=== PATIENT | female | born 1960 | race Caucasian/White ===

== ENCOUNTER 2016-09-15 07:11 | Inpatient (IN) | payer OTHER ==
--- NOTE | 2016-08-29 12:45 | PAT Medication Instructions ---
Service Date Aug 29, 2016. Current Home Medication List Albuterol Hfa (Ventolin Hfa), 2-4 PUFFS INH Q6H PRN for PRN Cholecalciferol (Vitamin D3), 5,000 UNITS PO QAM Citalopram (Citalopram Hydrobromide), 1 TAB PO QAM Gabapentin (Neurontin), 100 MG PO TID Ibuprofen (Motrin), 800 MG PO Q8H PRN for N Losartan Potassium (Cozaar), 50 MG PO QAM Meloxicam (Mobic), 7.5 MG PO QAM Metformin Hcl (Glucophage Ext Rel), 1,000 MG PO BID Multiple Vitamins W/ Minerals (Hair Skin and Nails Formu), 1 TAB PO QAM Simvastatin (Zocor), 5 MG PO HS [Humalog], SC PUMP [Hydroxyzine], 10 MG PO TID Medication Instructions For Your Scheduled Surgery - Check with surgeon for instructions: Ibuprofen (Motrin), 800 MG PO Q8H PRN for N Meloxicam (Mobic), 7.5 MG PO QAM - Hold the following medications 48 hours prior to surgery: Metformin Hcl (Glucophage Ext Rel), 1,000 MG PO BID - Hold the following medications the morning of surgery: Multiple Vitamins W/ Minerals (Hair Skin and Nails Formu), 1 TAB PO QAM Losartan Potassium (Cozaar), 50 MG PO QAM Cholecalciferol (Vitamin D3), 5,000 UNITS PO QAM - Take the following medications the morning of surgery with a sip of water: [Hydroxyzine], 10 MG PO TID Gabapentin (Neurontin), 100 MG PO TID Citalopram (Citalopram Hydrobromide), 1 TAB PO QAM Albuterol Hfa (Ventolin Hfa), 2-4 PUFFS INH Q6H PRN for PRN (bring with you to hospital morning of surgery) - Take the following medications as scheduled the night before surgery: [Hydroxyzine], 10 MG PO TID Simvastatin (Zocor), 5 MG PO HS Gabapentin (Neurontin), 100 MG PO TID Albuterol Hfa (Ventolin Hfa), 2-4 PUFFS INH Q6H PRN for PRN - For Insulin Dependent Diabetic patients: Test blood sugar A.M. of surgery. - Continue basal setting; no bolusing AM of surgery -- [Humalog], SC PUMP If you have any questions please call us at [phone] or [phone] or [phone]
[2016-08-29 13:53] LABS: BASO % 0.4 %; BASO ABS # 0.06 K/uL (0-0.2); COMPLETE YES; EOS % 1.3 %; HEMATOCRIT 39.6 % (37-47); IG% 0.2 %; LYMPH % 27.9 %; LYMPH ABS # 4.15 K/uL (1.2-3.4); MEAN CELL VOLUME 88.4 fL (80-100); MEAN CORPUSCULAR HEMOGLOBIN 28.8 pg (25-34); MEAN CORPUSCULAR HGB CONC 32.6 g/dl (32-36); MEAN PLATELET VOLUME 9.9 fL (7.4-10.4); MONO % 4.4 %; NEUT % 65.8 %; PLATELET COUNT 361 K/uL (130-400); RED BLOOD COUNT 4.48 M/uL (4.2-5.4); WHITE BLOOD COUNT 14.86 K/uL (4.8-10.8)
[2016-08-29 13:54] LABS: URINE APPEARANCE CLEAR (CLEAR); URINE BILIRUBIN NEG (NEG); URINE COLOR YELLOW; URINE NITRITE NEG (NEG); URINE PH 5.5 (4.5-7.5); URINE SPECIFIC GRAVITY 1.014 (1.000-1.030); UROBILINOGEN NEG (NEG)
--- NOTE | 2016-08-29 13:54 | DIAGNOSTIC IMAGING REPORT ---
CHEST 2 VIEWS ROUTINE CLINICAL HISTORY: Preoperative evaluation. COMPARISON STUDY: No previous studies for comparison. FINDINGS: Lung volumes are normal. There are cholecystectomy clips. No pneumothorax or pleural effusion is present. No consolidation is identified. There is no evidence of pulmonary edema. There is mild reticulonodular interstitial thickening within the lungs. Cardiac size is normal. Mediastinal contours are normal. Ill-defined hazy opacity projects over the lateral right lower lung. IMPRESSION: 1. No acute cardiopulmonary findings. 2. Mild reticulonodular interstitial thickening. This is nonspecific but likely chronic. 3. Ill-defined hazy right lower lung opacity. This likely reflects overlying soft tissues however a chest CT is recommended to exclude a parenchymal or pleural abnormality. Electronically signed by: Eliot Nolen M.D. 08/29/2016 1:52 PM Dictated Date/Time: 08/29/2016 1:39 PM
[2016-08-29 13:56] LABS: MANUAL MICROSCOPIC REQUIRED? NO; REVIEW REQ? NO
[2016-08-29 15:05] LABS: BUN/CREATININE RATIO 20.5 (10-20); CALCIUM 8.9 mg/dl (8.5-10.1); CREATININE 0.74 mg/dl (0.60-1.20); POTASSIUM 4.1 mmol/L (3.5-5.1)
--- NOTE | 2016-09-12 17:02 | HISTORY & PHYSICAL EXAMINATION ---
DATE OF ADMISSION: 09/15/2016 CHIEF COMPLAINT: Neck and right arm pain. HISTORY OF PRESENT ILLNESS: This patient is a 55-year-old female with a longstanding history of neck pain that radiates into the interscapular area with numbness radiating down the right arm with known spinal stenosis. She has an MRI that shows acquired stenosis superimposed upon congenital stenosis, is multifactorial, results in spinal cord compression without myelomalacia on her MRI. She has disease greatest at C4-C5, C5-C6 and C6-C7 with flattening of the cord, variable degrees of foraminal narrowing as well. Her symptoms have been chronic and failed to respond to conservative treatment. She denies tin incontinence. She denies tin weakness. 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 PAST MEDICAL HISTORY: Arthritis, asthma, diabetes, hypertension, high cholesterol. PAST SURGICAL HISTORY: Cholecystectomy, facial surgery, carpal tunnel release, hysterectomy, jaw surgery and tonsillectomy. SOCIAL HISTORY: The patient is , occasionally drinks alcohol and is a smoker. FAMILY HISTORY: Diabetes and hypertension as noted. MEDICATIONS: Metformin, citalopram, losartan, hydroxyzine, simvastatin, gabapentin. ALLERGIES: PENICILLIN AND NOVOCAIN. REVIEW OF SYSTEMS: Negative for chills, fever, night sweats, chest pain, heart murmur, dyspnea on exertion, incontinence, abdominal pain or depression. PHYSICAL EXAMINATION: The patient stands 5 feet tall, is 160 pounds. She stands and ambulates with a normal gait without tin ataxia. She has normal affect. Answers questions appropriately. Neck range of motion is supple. Fair range of motion. She has no tenderness to palpation in the cervical spine. She has no thyromegaly. No lymphadenopathy of the neck. Auscultation of the heart reveals a regular rate and rhythm. Lungs are clear to auscultation bilaterally with symmetric chest excursion. Upper extremity evaluation reveals palpable radial pulses. Full range of motion. Neurologic exam reveals intact sensation to light touch in all dermatomes in the upper extremities, 5/5 strength in all motor groups in both upper extremities, symmetric 2+ DTRs and a negative Neeta's. ASSESSMENT AND PLAN: The patient has cervical stenosis, is multifactorial with neck and arm pain and paresthesias. She desires surgery. She agreed to C3-C6 laminectomy and fusion. Risk reviewed. She would like to proceed. [facility]
[~2016-09-15] VITALS: Ht 154.9 cm; Wt 71.8 kg
[2016-09-15] VITALS (10 sets, daily range): BP systolic 130–167; BP diastolic 75–100; PULSE 85–107; TEMP 36.5–36.8; O2SAT 95–100
[~2016-09-15 07:11] MED LIST: CHOL1000 PO; CITA40TA4 PO; CLINDAMYCIN 600 MG/54 ML D5W IV SCH; CeleBREX 200 MG CAP PO SCH; GABA-112 PO; HUMALOG SC; HYDROXYZINE PO; IBUP-1428 PO; LOSA50TA6 PO; MELO7.5T5 PO; METF1TAB53 PO; MULT-1018 PO; PREGABALIN 75 MG CAP PO SCH; PROPOFOL IV EMULSION 10 MG/ML 100 ML VIAL IV ONE; SIMV5TAB2 PO; VNTHFA/IN INH
[2016-09-15] MEDS ORDERED: EpHEDrine SULFATE INJ 50 MG/ML AMP IV PRN (08:00)
[2016-09-15] MEDS ORDERED: ATROPINE SULFATE 0.1 MG/ML 5ML SYR IV PRN (08:00)
[2016-09-15] MEDS ORDERED: FENTANYL CITRATE INJ 50 MCG/1 ML 2 ML VIAL IV PRN (08:00)
[2016-09-15] MEDS ORDERED: ONDANSETRON INJ 2 MG/ML 2 ML VIAL IV PRN ×2 (08:00→12:45)
[2016-09-15] MEDS ORDERED: MIDAZOLAM HCL 1 MG/ML 2ML VIAL ONE (09:55)
[2016-09-15] MEDS ORDERED: FENTANYL CITRATE INJ 50 MCG/1 ML 2 ML VIAL ONE ×3 (09:55→13:08)
--- NOTE | 2016-09-15 10:11 | History & Physical Bridge Note ---
H&P Re-Evaluation Bridge Note: I have examined the patient, reviewed the History & Physical and in the interval since the performance of the History & Physical I have noted the following changes of clinical significance: No changes noted
[2016-09-15] MEDS ORDERED: REMIFENTANIL 1 MG VIAL ONE ×2 (10:22→11:41)
[2016-09-15] MEDS ORDERED: THROMBIN 5000 UNITS KIT ONE (10:24)
[2016-09-15] MEDS ORDERED: BACITRACIN 50000 UNIT VIAL ONE (10:25)
[2016-09-15] MEDS ORDERED: BUPIVACAINE/EPINEPHRINE 0.25% 1:200,000 30 ML VIAL ONE (10:47)
[2016-09-15] MEDS ORDERED: THROMBIN FOR SOLN 20000 UNIT KIT ONE (10:47)
[2016-09-15] MEDS ORDERED: HYDROmorphone INJ 2 MG/ML SYR/VIAL ONE ×3 (11:27→13:19)
[2016-09-15] MEDS ORDERED: PHENYLEPHRINE 100MCG/ML 5ML SYR ONE (11:33)
[2016-09-15] MEDS ORDERED: EpHEDrine SULFATE 50MG/5ML SYR ONE (11:33)
[2016-09-15] MEDS ORDERED: SUCCINYLCHOLINE CHLORIDE 20 MG/ML 10 ML VIAL IV ONE (11:33)
[2016-09-15] MEDS ORDERED: PROPOFOL IV EMULSION 10 MG/ML 20 ML VIAL IV ONE (11:33)
[2016-09-15] MEDS ORDERED: LIDOCAINE HCL 2% 2 ML VIAL (20MG/ML) ONE (11:33)
[2016-09-15] MEDS ORDERED: DEXAMETHASONE SOD INJ 4 MG/ML VIAL ONE (11:33)
[2016-09-15] MEDS ORDERED: FLOSEAL HEMOSTATIC MATRIX 5ML TOP ONE (12:21)
[2016-09-15] MEDS ORDERED: ONDANSETRON INJ 2 MG/ML 2 ML VIAL ONE ×2 (12:31)
--- NOTE | 2016-09-15 12:36 | [facility] Post Operative Brief Note ---
Immediate Operative Summary Operative Date Sep 15, 2016. Pre-Operative Diagnosis cervical stenosis, multifactorial with neck and arm pain and paresthesias Post-Operative Diagnosis same Procedure(s) Performed C3-C6 Posterior Laminectomy and Fusion with instrumentation Surgeon Dr. Rush Campos Shale Processing Technician Surgeon(s) Philippe Ponce PA-C Estimated Blood Loss 125 ML Findings dict Specimens none per surgeon
[2016-09-15] MEDS ORDERED: LORAZEPAM INJ 1 MG in SYRINGE 0 ML IV PRN (12:45)
[2016-09-15] MEDS ORDERED: LORAZEPAM 1 MG TAB PO PRN (12:45)
[2016-09-15] MEDS ORDERED: ALBUTEROL HFA 8 GM INHALER INH PRN (12:45)
[2016-09-15] MEDS ORDERED: METOPROLOL TARTRATE 1 MG/ML VIAL ONE (12:49)
--- NOTE | 2016-09-15 12:54 | DIAGNOSTIC IMAGING REPORT ---
Cervical SPINE, INTRAOPERATIVE FLUOROSCOPY HISTORY: Posterior fusion from C3 through C6. FLUOROSCOPY TIME: 9 seconds. FINDINGS: Intraoperative fluoroscopy was provided for the cervical spine. 2 fluoroscopic spot images were obtained. Posterior decompression and fusion from C3 through C6 with pedicle screws and rods. The hardware appears intact. A surgical drain is in place. Skin trey are present. IMPRESSION: Fluoroscopy provided for a C3-C6 posterior decompression and fusion. Electronically signed by: Massimo Kan M.D. 09/15/2016 12:52 PM Dictated Date/Time: 09/15/2016 12:52 PM
[2016-09-15] MEDS ORDERED: NURSING VERBAL MED ORDER ONE ×2 (13:00→19:15)
[2016-09-15] MEDS ORDERED: ALBUT/IPRATROP 3MG/0.5MG NEB 3 ML VIAL INH SCH (13:00)
[2016-09-15] MEDS: HYDROmorphone INJ 1 MG/ML SYR IV PRN ×4 (13:19→13:34)
--- NOTE | 2016-09-15 13:56 | Anesthesiology Progress Note ---
Anesthesia Post Op Note Date & Time Sep 15, 2016 at 13:56 Vital Signs Pain Intensity: 4 Vital Signs Past 12 Hours Date Time Temp Pulse Resp B/P (MAP) Pulse Ox O2 Delivery O2 Flow Rate FiO2 09/15/16 13:30 36.6 96 14 126/176 96 Nasal Cannula 4 09/15/16 13:20 91 14 170/108 100 Nasal Cannula 4 09/15/16 13:10 90 14 171/92 98 Mask 10 09/15/16 13:00 89 14 155/99 100 Mask 10 09/15/16 12:54 86 16 95 Mask 13.0 09/15/16 12:50 90 14 169/86 96 Mask 10 09/15/16 12:46 36.4 100 14 158/86 96 Mask 10 09/15/16 08:32 36.8 85 18 149/82 99 Room Air Notes Mental Status: alert / awake / arousable, participated in evaluation Pt Amnestic to Procedure: Yes Nausea / Vomiting: adequately controlled Pain: adequately controlled Airway Patency, RR, SpO2: stable & adequate BP & HR: stable & adequate Hydration State: stable & adequate Anesthetic Complications: no major complications apparent BG 136 in PACU - pt insulin pump back on
[2016-09-15] MEDS ORDERED: PHARMACY GLYCEMIC MGMT CONSULT PRN (15:35)
[2016-09-15] MEDS ORDERED: FLUT0.15 NAE (15:39)
[2016-09-15] MEDS ORDERED: ATR10 PO (15:39)
[2016-09-15] MEDS ORDERED: hydrOXYzine HCL 10 MG TAB PO PRN (15:45)
[2016-09-15] MEDS ORDERED: FLUTICASONE PROPIONATE NA SPR 16 GM BTL NAE PRN (15:45)
[2016-09-15] MEDS ORDERED: GLUCOSE 40% GEL 15 GM TUBE PO PRN (16:00)
[2016-09-15] MEDS ORDERED: INSULIN HUMAN LISPRO (humaLOG) 100 UNITS/ML VIAL SC PRN (16:00)
[2016-09-15] MEDS ORDERED: GLUCOSE 10 TABS/TUBE PO PRN (16:00)
[2016-09-15] MEDS ORDERED: DEXTROSE 50% 50 ML SYR IV PRN (16:00)
[2016-09-15] MEDS ORDERED: GLUCAGON FOR INJ 1 MG VIAL SQ PRN (16:00)
--- NOTE | 2016-09-15 16:01 | Pharmacy Progress Note ---
Glycemic Control Intl Consult Date of Service Sep 15, 2016. Scope Glycemic Pharmacist consulted by Vickie Liang on 09/15/16 for glycemic control and to write orders per [facility] inpatient glycemic control protocol Objective Weight (Kilograms): 71.800 Accuchecks BSG (last 24hrs): Test 09/15/16 08:22 09/15/16 11:58 09/15/16 13:01 Bedside Glucose 135 mg/dl (70-90) 150 mg/dl (70-90) 136 mg/dl (70-90) Recent Pertinent Medications Outpatient Anti-diabetic Regimen: * Humalog Pump * Unknown settings; Pt and both unaware and unable to provide any specifics * Nurse tried to interrogate the pump and thought the basal rate may be 0.625 units/hr but still is not sure of this * A1c = unknown The patient is currently receiving: * Humalog Insulin Pump per unknown home settings Risk Factors for Insulin Resistance: * Steroids: Intraop Dexamethasone IV * Infection: Post-op Clindamycin IV * IVF: NS * Recent Surgery: POD #0 * Diet: T1DM? Assessment & Plan ASSESSMENT: * 56 yo F admitted with spinal stenosis, POD #0 * Per note in consult entry from RICARDO- patient is a Type 2 diabetic * Unknown A1c; pt uses Humalog pump + Metformin as an outpatient * Upon questioning over the phone, pt and both unable to offer any insight into home pump settings * Nurse attempted to scroll through pump and thought basal rate may be 0.625 units/hr? * As this is after hours, evening pharmacist can not leave pharmacy and interrogate pump * BSGs are within goal range at this time even though she received intraop dexamethasone IV * Continue home pump at this time and intervene if and when necessary * ADA & AACE recommend a goal blood sugar range 140-180 mg/dl for the majority of critically ill & non-critically ill patients. However, more stringent targets may be selected in individual cases. PLAN FOR INPATIENT GLYCEMIC CONTROL: * Hold outpatient metformin at this time * Continue Humalog Pump per home settings * Attempt to have CDE/glycemic pharmacist tomorrow review home settings * A1c with AM labs * Please note that the plan above was derived based on current level of insulin resistance and hospital stress. These recommendations are appropriate for inpatient admission only. Plan of care upon discharge will need to be reassessed to avoid potential outpatient hypo/hyperglycemia. Thank you.
[2016-09-15] MEDS: SODIUM CHLORIDE 0.9% 1000ML 1,000 ML IV SCH (16:11)
[2016-09-15] MEDS: GABAPENTIN 100 MG CAP PO SCH ×2 (16:12→21:34)
[2016-09-15] MEDS: CLINDAMYCIN IV 600 MG in DEXTROSE 5% 50ML 50 ML IV SCH (18:46)
[2016-09-15] MEDS: TRAMADOL HCL 50 MG TAB PO PRN (18:46)
--- NOTE | 2016-09-15 19:13 | Medical Consult ---
Consultation Date of Consultation: Sep 15, 2016. Attending Physician: Rush Campos M.D. Reason for Consultation: diabetes History of Present Illness Patient seen and examined after undergoing C3-C6 laminectomy and fusion by Dr. Campos today. Patient reports feeling tired but no other complaints. Pain is controlled. Has not eaten yet. Last BM was yesterday. Has Cota catheter in place. No fever, chills, dizziness, numbness, tingling, URI symptoms, cough, SOB , chest pain, nausea, vomiting. No hx of VTE. Past Medical/Surgical History Medical Problems: (1) Arthritis Status: Chronic (2) Asthma Status: Chronic (3) DM type 2 (diabetes mellitus, type 2) Status: Chronic (4) HTN (hypertension) Status: Chronic (5) Hyperlipidemia Status: Chronic Surgical Problems: (1) History of carpal tunnel surgery Status: Chronic (2) History of facial surgery Status: Chronic (3) History of hysterectomy Status: Chronic (4) History of mandibular surgery Status: Chronic (5) S/P cholecystectomy Status: Chronic (6) S/P tonsillectomy Status: Chronic Family History Diabetes mellitus Hypertension Social History Smoking Status: Current Every Day Smoker (1/2 ppd) Alcohol Use: occasionally Marital Status: Housing Status: lives with significant other Allergies Coded Allergies: Acetaminophen (Verified Allergy, Unknown, NAUSEA AND VOMITING, 09/15/16) Oxycodone (Verified Allergy, Unknown, NAUSEA AND VOMITING, 09/15/16) Penicillins (Verified Allergy, Unknown, UNKNOWN, 09/15/16) Procaine (Verified Allergy, Unknown, UNKNOWN REACTION A CHILD, 09/15/16) Propoxyphene (Verified Allergy, Unknown, NAUISEA AND VOMITING, 09/15/16) Unclassified Drugs (Verified Allergy, Unknown, NOVACAINE - UNKNOWN REACTION CHILD, 09/15/16) Home Medications Active Reported Flonase Allergy Relief (Fluticasone Propionate (Nasal)) 50 Mcg/Act Spr 1 [place] DANIEL BID PRN Hydroxyzine HCl 10 Mg Tab 10 Mg PO Q8 PRN Ventolin Hfa (Albuterol) 200 Puffs/21108 Mcg Aers 2 Puffs INH Q4H PRN Motrin (Ibuprofen) 800 Mg Tab 800 Mg PO Q8H PRN Neurontin (Gabapentin) 100 Mg Cap 100 Mg PO TID Vitamin D3 (Cholecalciferol) 1,000 Unit Tab 1,000 Units PO QAM 90 Days Cozaar (Losartan Potassium) 50 Mg Tab 50 Mg PO QAM Citalopram Hydrobromide (Citalopram) 40 Mg Tab 1 Tab PO QAM 90 Days [Humalog] SC PUMP Glucophage Ext Rel (Metformin Hcl) 1,000 Mg Tab 1,000 Mg PO BID Current Inpatient Medications Current Inpatient Medications Medications (Trade) Dose Ordered Sig/Riley Route Start Time Stop Time Status Last Admin Dose Admin Clindamycin Phosphate 54 ml @ 100 mls/hr PREOP IV 09/15/16 06:00 09/15/16 18:00 09/15/16 10:36 100 MLS/HR Celecoxib (CeleBREX CAP) 200 mg PREOP PO 09/15/16 06:00 09/15/16 18:00 09/15/16 08:49 200 MG Pregabalin (Lyrica Cap) 75 mg PREOP PO 09/15/16 06:00 09/15/16 15:59 09/15/16 08:48 75 MG Albuterol (Ventolin Hfa Inhaler) 2-4 PUFFS Q6H PRN INH 09/15/16 12:45 10/15/16 12:44 Citalopram Hydrobromide (celeXA TAB) 40 mg QAM PO 09/16/16 09:00 10/16/16 08:59 Gabapentin (Neurontin Cap) 100 mg TID PO 09/15/16 14:00 10/15/16 13:59 Losartan Potassium (coZAAR TAB) 50 mg QAM PO 09/16/16 09:00 10/16/16 08:59 Simvastatin (Zocor Tab) 5 mg HS PO 09/15/16 21:00 10/15/16 20:59 Ondansetron HCl (Zofran Inj) 4 mg Q6 PRN IV 09/15/16 12:45 10/15/16 12:44 Clindamycin Phosphate 600 mg/ Dextrose 54 ml @ 100 mls/hr Q8H IV 09/15/16 18:00 09/16/16 10:33 Lorazepam (Ativan Tab) 1 mg Q8H PRN PO 09/15/16 12:45 10/15/16 12:44 Lorazepam 1 mg/ Syringe 0.5 ml @ 1 mls/min Q8 PRN IV 09/15/16 12:45 10/15/16 12:44 Sodium Chloride 1,000 ml @ 80 mls/hr [id number] IV 09/15/16 12:36 09/16/16 12:35 Hydromorphone HCl (Dilaudid Inj) 0.5 mg Q3H PRN IV 09/15/16 12:45 09/29/16 12:44 Tramadol HCl (Ultram Tab) 50 mg Q4H PRN PO 09/15/16 12:45 10/15/16 12:44 Miscellaneous Information (Consult Glycemic Management Pharmacy) 1 ea UD PRN N/A 09/15/16 15:35 10/15/16 15:34 Review of Systems Constitutional- no fever; no weight loss Eyes- no acute visual changes ENT- no sinus drainage; no pharyngitis Pulmonary- no cough, no wheezing, no shortness of breath Cardiac- no chest pain, no palpitations, no orthopnea, no dependent edema GI- no nausea, no vomiting, no diarrhea, no melena, no hematochezia - no dysuria, no hematuria Musculoskeletal- no arthralgias, no myalgias Derm- no rashes, no new skin lesions, no changing skin lesions Hematologic- no unusual bruising, no unusual bleeding Lymphatics- no adenopathy Endocrine- no polyuria or polydipsia; no heat or cold intolerance Neuro- no headaches, no focal neurologic symptoms Psych- no anxiety, no depression Physical Exam Date Time Temp Pulse Resp B/P (MAP) Pulse Ox O2 Delivery O2 Flow Rate FiO2 09/15/16 15:17 36.8 97 16 130/85 (100) 99 Nasal Cannula 4.0 09/15/16 15:02 Nasal Cannula 4.0 09/15/16 14:50 36.7 103 16 135/85 (102) 97 Nasal Cannula 4.0 09/15/16 14:10 36.4 94 14 130/62 100 Nasal Cannula 4 09/15/16 14:00 98 14 106/64 98 Nasal Cannula 4 09/15/16 13:50 94 14 146/80 96 Nasal Cannula 4 09/15/16 13:40 92 14 153/90 96 Nasal Cannula 4 09/15/16 13:30 36.6 96 14 126/76 96 Nasal Cannula 4 09/15/16 13:20 91 14 170/108 100 Nasal Cannula 4 09/15/16 13:10 90 14 171/92 98 Mask 10 09/15/16 13:00 89 14 155/99 100 Mask 10 09/15/16 12:54 86 16 95 Mask 13.0 09/15/16 12:50 90 14 169/86 96 Mask 10 09/15/16 12:46 36.4 100 14 158/86 96 Mask 10 09/15/16 08:32 36.8 85 18 149/82 99 Room Air General Appearance: WD/WN, no apparent distress, + pertinent finding (mildly drowsy cooperative 56 year old female) Head: normocephalic, atraumatic Eyes: normal inspection ENT: hearing grossly normal Neck: trachea midline, + pertinent finding (s/p cervical spinal surgery, dressing in place, drain with sanguinous drainage) Respiratory/Chest: lungs clear, normal breath sounds, no respiratory distress, no accessory muscle use Cardiovascular: no murmur, + pertinent finding (HR mildly elevated to 90s, regular) Abdomen/GI: normal bowel sounds, non tender, soft, + pertinent finding (SQ insulin pump) Genitourinary - Female: + pertinent finding (Cota catheter draining clear yellow urine) Extremities/Musculoskelatal: no calf tenderness, no pedal edema Neurologic/Psych: alert, normal mood/affect, oriented x 3 Skin: normal color, warm/dry Laboratory Results Last 24 Hours Test 09/15/16 08:22 09/15/16 11:58 09/15/16 13:01 Bedside Glucose 135 mg/dl 150 mg/dl 136 mg/dl Assessment & Plan S/P C3-C6 LAMINECTOMY AND FUSION POD #[address] Campos Doing well postoperatively Pain control, wound care, and activity per ortho Monitor daily H/H for sign of acute blood loss anemia Continue incentive spirometry MILD TACHYCARDIA HR mildly elevated to 90s-100s after receiving Duoneb treatment in afternoon Elevated HR persisted through 7pm- may be pain related; RN just medicated patient Will increase IVF's to 100/hour DM TYPE 2 Hold metformin On insulin pump- pharmacy consulted for management HYPERTENSION BP is stable Continue losartan ASTHMA Not in acute exacerbation Continue home inhaler DYSLIPIDEMIA Continue statin DEPRESSION Continue citalopram DISPOSITION Per ortho Patient seen in collaboration with Dr. Rodríguez. Please see his addendum. ATTENDING ADDENDUM care coordinated with NORTH Liang please refer to her notes for full details, I agree with her notes patient seen and examined, records reviewed by myself as well on exam, patient seen sitting up in bed, in good spirits, alert pain well controlled denies chest pain, dyspnea, dizziness, nausea no other symptoms VS noted and reviewed orientedx 3 , not in distress, speaks in sentences with no effort nor accessory muscle use normal rate, regular rhythm, no murmurs clear breath sounds bilaterally non distended, soft, nontender no bipedal edema, erythema, warmth no neuro deficits no labs today ASSESSMENT/PLAN> DM hold Metformin resume tomorrow when renal function is stable continue Insulin Pump HTN continue Losartan other diagnoses and plan of care as per NORTH Rodríguez MD
[2016-09-15] MEDS: SIMVASTATIN 5 MG TAB PO SCH (21:33)
[2016-09-15] MEDS ORDERED: INSULIN HUMAN REGULAR IV BOLUS 5 UNIT in SYRINGE 0 ML IV SCH (22:00)
[2016-09-15] MEDS: HYDROmorphone INJ 0.5 MG/0.5 ML SYR IV PRN (23:14)
[2016-09-16] MEDS: SODIUM CHLORIDE 0.9% 1000ML 1,000 ML IV SCH ×2 (00:18→10:07)
[2016-09-16] MEDS: CLINDAMYCIN IV 600 MG in DEXTROSE 5% 50ML 50 ML IV SCH ×2 (01:59→10:07)
[2016-09-16 03:45] VITALS: BP 155/83; PULSE 99; TEMP 36.6; O2SAT 100
[2016-09-16] MEDS: TRAMADOL HCL 50 MG TAB PO PRN (03:47)
[2016-09-16] MEDS: HYDROmorphone INJ 0.5 MG/0.5 ML SYR IV PRN ×3 (05:14→21:34)
[2016-09-16 06:13] LABS: BASO % 0.1 %; BASO ABS # 0.02 K/uL (0-0.2); COMPLETE YES; EOS % 0.1 %; HEMATOCRIT 37.4 % (37-47); IG% 0.2 %; LYMPH % 14.9 %; LYMPH ABS # 2.49 K/uL (1.2-3.4); MEAN CELL VOLUME 88.6 fL (80-100); MEAN CORPUSCULAR HEMOGLOBIN 29.9 pg (25-34); MEAN CORPUSCULAR HGB CONC 33.7 g/dl (32-36); MEAN PLATELET VOLUME 11.4 fL (7.4-10.4); NEUT % 76.7 %; PLATELET COUNT 263 K/uL (130-400); RED BLOOD COUNT 4.22 M/uL (4.2-5.4); WHITE BLOOD COUNT 16.66 K/uL (4.8-10.8)
[2016-09-16 06:44] LABS: BUN/CREATININE RATIO 13.2 (10-20); CALCIUM 9.2 mg/dl (8.5-10.1); CREATININE 0.65 mg/dl (0.60-1.20); POTASSIUM 3.8 mmol/L (3.5-5.1)
[2016-09-16 06:51] LABS: ESTIMATED AVERAGE GLUCOSE 154 mg/dl; HA1C FLAG Normal (Normal)
[2016-09-16 07:38] VITALS: BP 184/99; PULSE 93; TEMP 36.6; O2SAT 100
[2016-09-16] MEDS: LOSARTAN POTASSIUM 50 MG TAB PO SCH (07:42)
[2016-09-16] MEDS: CITALOPRAM 40 MG TAB PO SCH (07:42)
[2016-09-16] MEDS: GABAPENTIN 100 MG CAP PO SCH ×3 (07:43→21:39)
--- NOTE | 2016-09-16 08:35 | Anesthesiology Progress Note ---
Anesthesia Post Op Note Date & Time Sep 16, 2016 at 08:34 Vital Signs Pain Intensity: 10.0 Vital Signs Past 12 Hours Date Time Temp Pulse Resp B/P (MAP) Pulse Ox O2 Delivery O2 Flow Rate FiO2 09/16/16 07:38 36.6 93 17 184/99 (127) 100 Room Air 09/16/16 07:37 Room Air 09/16/16 03:45 36.6 99 14 155/83 (107) 100 Room Air 09/16/16 00:25 Room Air 09/15/16 22:51 36.7 102 14 130/75 (93) 97 Room Air 09/15/16 21:20 103 161/91 (114) 96 Room Air Notes Mental Status: alert / awake / arousable, participated in evaluation Pt Amnestic to Procedure: Yes Nausea / Vomiting: adequately controlled Pain: adequately controlled Airway Patency, RR, SpO2: stable & adequate BP & HR: stable & adequate Hydration State: stable & adequate Anesthetic Complications: no major complications apparent
--- NOTE | 2016-09-16 10:02 | Pharmacy Progress Note ---
Glycemic Control Progress Note Date of Service Sep 16, 2016. Scope Glycemic Pharmacist consulted for glycemic control to write orders per [facility] inpatient glycemic control protocol. Objective Accuchecks BSG (last 24hrs): Test 09/15/16 11:58 09/15/16 13:01 09/15/16 21:44 09/15/16 23:55 Bedside Glucose 150 mg/dl (70-90) 136 mg/dl (70-90) 273 mg/dl (70-90) 198 mg/dl (70-90) Test 09/16/16 03:44 09/16/16 05:40 Bedside Glucose 115 mg/dl (70-90) Random Glucose 99 mg/dl (70-99) HbA1c: Test 09/16/16 05:40 Hemoglobin A1c 7.0 % (4.5-5.6) H Recent Pertinent Medications The patient is currently receiving: * Medtronic insulin pump {Humalog insulin} per outpatient settings * Basal rate = 0.625 units/hr * Goal range 120-120 * SF = 60 * CR = 18 Outpatient Anti-Diabetic Meds Oral Agents SQ Medrtonic insulin pump {Humalog} Assessment & Plan ASSESSMENT: * See progress note from 09/15 for more background info, in short: * Pt receiving her outpatient regimen of Humalog insulin pump per outpatient settings. * Pt with adequate degree of outpatient control per recent A1c of 7%. * Pt with sustained hyperglycemia yesterday to recent surgery, and steroids. * Hyperglycemia now resolved with Q4hrs bolusing from her pump over night and one time IV insulin bolus. Additionally, dxm effects are wearing off which should prevent further hyperglycemia. * BSGs ranging 99 - 336 mg/dl over the past 24hrs * staff educator met with patient this morning. Please refer to their note for more information. * Changes needed to insulin regimen: * AM Fasting BSG = 99 mg/dl. This is in goal range for patient based on inpatient targets and co-morbidities. * Post-prandial BSGs are in range therefore no changes needed to CF/CR based on pump settings * Pt to d/c to home soon PLAN FOR INPATIENT GLYCEMIC CONTROL: No changes needed at this time. Pt to continue utilizing her insulin pump per outpatient settings until discharge. * Please note that the plan above was derived based on current level of insulin resistance and hospital stress. These recommendations are appropriate for inpatient admission only. Plan of care upon discharge will need to be reassessed to avoid potential outpatient hypo/hyperglycemia. Thank you.
[2016-09-16 11:17] VITALS: Ht 154.9 cm; Wt 71.8 kg
--- NOTE | 2016-09-16 12:44 | Progress Note ---
Medicine Progress Note Date & Time of Visit: Sep 16, 2016 at 12:40. Subjective seen resting in bed reports neck pain today no dyspnea, chest pain, dizziness, nausea no other symptoms Objective Last 8 Hrs Date Time Temp Pulse Resp B/P (MAP) Pulse Ox O2 Delivery O2 Flow Rate FiO2 09/16/16 07:38 36.6 93 17 184/99 (127) 100 Room Air 09/16/16 07:37 Room Air Physical Exam: General- oriented x 3, not in distress, speaks in sentences with no effort Eyes- anicteric Neck- supple, no JVD Lungs- clear breath sounds bilaterally, no rales/wheezes Heart- regular rhythm; no murmur, normal rate Abdomen- normal bowel sounds, soft, nontender Extremities- no pretibial edema, no calf tenderness; peripheral pulses intact Neuro- alert, oriented x 3; no gross focal deficits Skin- warm & dry Laboratory Results: Last 24 Hours Test 09/15/16 13:01 09/15/16 21:44 09/15/16 23:55 09/16/16 03:44 Bedside Glucose 136 mg/dl 273 mg/dl 198 mg/dl 115 mg/dl Test 09/16/16 05:40 White Blood Count 16.66 K/uL Red Blood Count 4.22 M/uL Hemoglobin 12.6 g/dL Hematocrit 37.4 % Mean Corpuscular Volume 88.6 fL Mean Corpuscular Hemoglobin 29.9 pg Mean Corpuscular Hemoglobin Concent 33.7 g/dl Platelet Count 263 K/uL Mean Platelet Volume 11.4 fL Neutrophils (%) (Auto) 76.7 % Lymphocytes (%) (Auto) 14.9 % Monocytes (%) (Auto) 8.0 % Eosinophils (%) (Auto) 0.1 % Basophils (%) (Auto) 0.1 % Neutrophils # (Auto) 12.76 K/uL Lymphocytes # (Auto) 2.49 K/uL Monocytes # (Auto) 1.33 K/uL Eosinophils # (Auto) 0.02 K/uL Basophils # (Auto) 0.02 K/uL RDW Standard Deviation 44.8 fL RDW Coefficient of Variation 13.8 % Immature Granulocyte % (Auto) 0.2 % Immature Granulocyte # (Auto) 0.04 K/uL Sodium Level 140 mmol/L Potassium Level 3.8 mmol/L Chloride Level 106 mmol/L Carbon Dioxide Level 24 mmol/L Anion Gap 10.0 mmol/L Blood Urea Nitrogen 9 mg/dl Creatinine 0.65 mg/dl Est Creatinine Clear Calc Drug Dose 86.5 ml/min Estimated GFR () 114.2 Estimated GFR (Non- 98.6 BUN/Creatinine Ratio 13.2 Random Glucose 99 mg/dl Estimated Average Glucose 154 mg/dl Hemoglobin A1c 7.0 % Calcium Level 9.2 mg/dl Hepatitis C Antibody Screen NEG Assessment & Plan S/P C3-C6 LAMINECTOMY AND FUSION POD #[address] Campos hg stable Pain management, DVT prophylaxis per Ortho DM TYPE 2 crea stable resume Metformin On insulin pump- pharmacy consulted HYPERTENSION BP elevated PRN Clonidine ordered Continue losartan d/c IV fluids ASTHMA Not in acute exacerbation Continue home inhaler DYSLIPIDEMIA Continue statin DEPRESSION Continue citalopram Thank you for this consultation. We will follow the patient with you during their hospital stay. You can reach a member of the [facility] Hospitalist Team 17/10 via pager @ [phone]. Current Inpatient Medications: Current Inpatient Medications Medications (Trade) Dose Ordered Sig/Riley Route Start Time Stop Time Status Last Admin Dose Admin Albuterol (Ventolin Hfa Inhaler) 2-4 PUFFS Q6H PRN INH 09/15/16 12:45 10/15/16 12:44 Citalopram Hydrobromide (celeXA TAB) 40 mg QAM PO 09/16/16 09:00 10/16/16 08:59 09/16/16 07:42 40 MG Gabapentin (Neurontin Cap) 100 mg TID PO 09/15/16 14:00 10/15/16 13:59 09/16/16 07:43 100 MG Losartan Potassium (coZAAR TAB) 50 mg QAM PO 09/16/16 09:00 10/16/16 08:59 09/16/16 07:42 50 MG Simvastatin (Zocor Tab) 5 mg HS PO 09/15/16 21:00 10/15/16 20:59 09/15/16 21:33 5 MG Ondansetron HCl (Zofran Inj) 4 mg Q6 PRN IV 09/15/16 12:45 10/15/16 12:44 Lorazepam (Ativan Tab) 1 mg Q8H PRN PO 09/15/16 12:45 10/15/16 12:44 09/16/16 07:41 1 MG Lorazepam 1 mg/ Syringe 0.5 ml @ 1 mls/min Q8 PRN IV 09/15/16 12:45 10/15/16 12:44 Hydromorphone HCl (Dilaudid Inj) 0.5 mg Q3H PRN IV 09/15/16 12:45 09/29/16 12:44 09/16/16 10:08 0.5 MG Tramadol HCl (Ultram Tab) 50 mg Q4H PRN PO 09/15/16 12:45 10/15/16 12:44 09/16/16 03:47 50 MG Miscellaneous Information (Consult Glycemic Management Pharmacy) 1 ea UD PRN N/A 09/15/16 15:35 10/15/16 15:34 Fluticasone Propionate (Flonase Nasal [place]) 1 sprays BID PRN DANIEL 09/15/16 15:45 10/15/16 15:44 Hydroxyzine HCl (Vistaril Tab) 10 mg Q8 PRN PO 09/15/16 15:45 10/15/16 15:44 Insulin Human Lispro (HumaLOG INSULIN PUMP) 1 ea ACHS N/A 09/15/16 17:15 10/15/16 17:14 09/15/16 21:00 1 EA Insulin Human Lispro (humaLOG) SLIDING SCALE PRN PRN SC 09/15/16 16:00 10/15/16 15:59 Glucose (Glucose 40% Gel) UD PRN PO 09/15/16 16:00 10/15/16 15:59 Glucose (Glucose Chew Tab) 1 tabs UD PRN PO 09/15/16 16:00 10/15/16 15:59 Glucagon (Glucagon Inj) 1 mg UD PRN SQ 09/15/16 16:00 10/15/16 15:59 Dextrose (Dextrose 50% 50ML Syringe) 50 ml UD PRN IV 09/15/16 16:00 10/15/16 15:59 Metformin HCl (Glucophage Extended Rel Tab) 1,000 mg BIDM PO 09/16/16 17:45 10/16/16 17:44
[2016-09-16] MEDS ORDERED: CLONIDINE HCL 0.1 MG TAB PO PRN (12:45)
[2016-09-16 13:11] VITALS: BP 167/99; PULSE 99; O2SAT 96
[2016-09-16] MEDS ORDERED: CLONIDINE HCL 0.1 MG TAB PO ONE (13:15)
--- NOTE | 2016-09-16 14:26 | Orthopedic Progress Note ---
Orthopedic Progress Note Date of Service Sep 16, 2016. Subjective Post OP Day: 1 Reports: feeling well, pain controlled w PO medications Objective calves soft nontender, N/V intact, dressing C/D/I, A&O x3, hemovac drainage Date Time Temp Pulse Resp B/P (MAP) Pulse Ox O2 Delivery O2 Flow Rate FiO2 09/16/16 13:11 99 16 167/99 (121) 96 Room Air 09/16/16 07:38 36.6 93 17 184/99 (127) 100 Room Air 09/16/16 07:37 Room Air 09/16/16 03:45 36.6 99 14 155/83 (107) 100 Room Air 09/16/16 00:25 Room Air 09/15/16 22:51 36.7 102 14 130/75 (93) 97 Room Air 09/15/16 21:20 103 161/91 (114) 96 Room Air 09/15/16 19:23 36.6 98 16 167/100 (122) 100 Nasal Cannula 4.0 09/15/16 17:56 36.6 107 17 164/90 (114) 99 Nasal Cannula 4.0 09/15/16 16:48 36.5 106 17 136/84 (101) 98 Room Air 09/15/16 15:50 36.7 98 16 131/86 (101) 98 Nasal Cannula 4.0 09/15/16 15:45 Nasal Cannula 4.0 09/15/16 15:17 36.8 97 16 130/85 (100) 99 Nasal Cannula 4.0 09/15/16 15:02 Nasal Cannula 4.0 09/15/16 14:50 36.7 103 16 135/85 (102) 97 Nasal Cannula 4.0 Laboratory Results 24 Hours: Test 09/16/16 05:40 White Blood Count 16.66 K/uL Red Blood Count 4.22 M/uL Hemoglobin 12.6 g/dL Hematocrit 37.4 % Mean Corpuscular Volume 88.6 fL Mean Corpuscular Hemoglobin 29.9 pg Mean Corpuscular Hemoglobin Concent 33.7 g/dl Platelet Count 263 K/uL Mean Platelet Volume 11.4 fL Neutrophils (%) (Auto) 76.7 % Lymphocytes (%) (Auto) 14.9 % Monocytes (%) (Auto) 8.0 % Eosinophils (%) (Auto) 0.1 % Basophils (%) (Auto) 0.1 % Neutrophils # (Auto) 12.76 K/uL Lymphocytes # (Auto) 2.49 K/uL Monocytes # (Auto) 1.33 K/uL Eosinophils # (Auto) 0.02 K/uL Basophils # (Auto) 0.02 K/uL Assessment & Plan Assessment: neck pain, neuro improved. cont insulin pump,cont drain, d/c monday? appreciate IM input
[2016-09-16 15:27] VITALS: BP 159/90; PULSE 90; TEMP 36.8; O2SAT 97
[2016-09-16] MEDS: METFORMIN HCL 500 MG TABCR PO SCH (18:40)
[2016-09-16] MEDS: KETOROLAC TROMETHAMINE 15 MG/ML VIAL IV PRN (21:34)
--- NOTE | 2016-09-16 22:03 | OPERATIVE REPORT ---
DATE OF OPERATION: 09/15/2016 PREOPERATIVE DIAGNOSES: 1. Cervical stenosis. 2. Cervical radiculopathy and myelopathy. POSTOPERATIVE DIAGNOSES: Same. PROCEDURES: 1. C3, C4, C5 and C6 laminectomies. 2. Segmental lateral mass screw instrumentation -- bilateral C3, C4, C5 and C6 with K2M titanium lateral mass screws. 3. Posterior fusion C3-C6 -- bilateral with Infuse BMP on a collagen sponge, tricalcium phosphate, local bone, and bone putty. SURGEON: Dr. Campos. OSTEOLOGIST: Tony Ponce PA-C. Please note he participated in all portions of the procedure and was critical for performance of procedure, participated in positioning, prepping, draping, retraction and wound closure. ANESTHESIA: General endotracheal anesthesia. COMPLICATIONS: None. ESTIMATED BLOOD LOSS: 100 mL. DESCRIPTION OF PROCEDURE: After identification of patient and operative level, she was brought to the OR where she underwent induction of general anesthesia. She was then positioned prone with Butts tongs and skull pin after placement of spinal cord monitoring. The posterior cervical area was sterilely prepped and draped in usual fashion. Antibiotics were administered. Time-out was performed. Level was confirmed and skin incision was infiltrated with Marcaine with epinephrine. I made skin incision from spinous process of C2-C7, exposed the posterior elements out to the lateral portion of the lateral masses from C3-C6. I identified the level with fluoroscopy and marked the operative levels and then proceeded to predrill and tap holes in lateral masses of C3, C4, C5 and C6 for subsequent lateral mass screw insertion. Screws were placed unicortically. I used a ball tipped probe to confirm this. Screws were placed bilaterally at all levels. I then did a central laminectomy creating a trough on each side of the lamina from C3-C6. This was done bilaterally. I then released the ligaments proximally and distally and removed the lamina from C3-C6 en bloc. This was then cleaned and morcellized for bone graft. After completion of the central decompression, I did foraminotomies as necessary, confirmed nerve roots, spinal cord, decompressed undercut C3 and C7 above and below en bloc laminectomy and then applied FloSeal for hemostasis. I then placed lateral mass screws from C3-C6 bilaterally, applied rods and end caps for final tightening. Prior to inserting the nuno, I did scrub out and extended the neck to restore lordosis, repositioned the head, there were no changes in spinal cord monitoring during this maneuver, I then marked the rods and end caps into place. Applied a crosslink, irrigated with bacitracin solution and decorticated the lateral masses from C3-C6 bilaterally and then packed the lateral gutters with bone graft using Infuse BMP on a collagen sponge, tricalcium phosphate, local bone and bone putty. I then closed in layered fashion over a drain. All sponge and needle counts were correct at the end of the case. I attest to the content of the Intraoperative Record and any orders documented therein. Any exception s are noted below.
[2016-09-16] MEDS: SIMVASTATIN 5 MG TAB PO SCH (22:05)
[2016-09-17] VITALS (8 sets, daily range): BP systolic 135–174; BP diastolic 82–107; PULSE 78–93; TEMP 36.6–37; O2SAT 96–99
[2016-09-17 06:21] LABS: CALCIUM 8.9 mg/dl (8.5-10.1)
[2016-09-17 06:22] LABS: CREATININE 0.69 mg/dl (0.60-1.20); POTASSIUM 3.5 mmol/L (3.5-5.1)
[2016-09-17] MEDS: KETOROLAC TROMETHAMINE 15 MG/ML VIAL IV PRN (08:00)
[2016-09-17] MEDS: LOSARTAN POTASSIUM 50 MG TAB PO SCH (09:53)
[2016-09-17] MEDS: GABAPENTIN 100 MG CAP PO SCH (09:53)
[2016-09-17] MEDS: CITALOPRAM 40 MG TAB PO SCH (09:53)
[2016-09-17] MEDS: METFORMIN HCL 500 MG TABCR PO SCH (09:54)
[2016-09-17] MEDS ORDERED: ULT50X PO (14:10)
--- NOTE | 2016-09-17 14:12 | Discharge Instructions ---
Discharge Instructions Date of Service Sep 17, 2016. Admission Reason for Admission: Spinal Stenosis Discharge Discharge Diagnosis / Problem: same Discharge Goals Goal(s): Decrease discomfort Activity Recommendations Activity Limitations: per Instructions/Follow-up section . Instructions / Follow-Up Instructions / Follow-Up ACTIVITY RECOMMENDATIONS: SELF CARE INSTRUCTIONS AFTER CERVICAL FUSIONS 1. No smoking. Smoking drastically decreases the chance of a solid fusion. 2. No bending, lifting more than 5 pounds, or twisting (roll like a log when turning in bed). 3. You may shower 3 days after surgery. Thoroughly dry wound. Do not soak in the tub. 4. Cervical collar: You may remove the brace only to bath, eat , sleep and if you are sitting. 5. Please walk as much as you can for exercise. Gradually increase the distance that you walk as your endurance increases. SPECIAL CARE INSTRUCTIONS: VERY IMPORTANT TO READ AND REVIEW C. Complications are uncommon, but please contact us if you have any signs or symptoms of: 1. wound infection (fever higher than 102.5 degrees F, redness, separation of wound, drainage, or increasing pain from the incision) 2. blood clots in legs (pain, swelling, redness and warmth in legs) 3. urinary tract infection (fever higher than 102.5 degrees, burning upon urination or increased frequency of urination) 4. nerve problems (inability to walk on your toes or heels, numbness, loss of bowel or bladder control) 5. any other symptoms that concern you. D. Please call the office at if you have any concerns or questions about your operation or recovery. MANAGING PAIN AFTER SPINAL SURGERY 1. Narcotic medication is intended for short-term use and will be provided for surgical pain. Surgical pain usually lasts for a period of 4-6 weeks. Narcotic medication includes Percocet, Vicodin, Darvocet, Tylenol #3 or Lortab. 2. Longer-term pain is more appropriately treated with non-narcotic medication such as Tylenol ES. 3. Muscle spasm is not appropriately treated with narcotics. Muscle relaxers such as Soma, Flexeril or Skelaxin can be used along with Tylenol ES. 4. Remember that we all live with some "aches and pains". This is not unusual or uncommon after an injury or as we get older. 5. We will provide appropriate medication within the normal guidelines of their prescribed use. We will also be very cautious and aware of potential abuse and extended duration of patients' medication needs. 6. Please allow 2-3 days to process refills. Prescriptions will not be mailed but must be picked up at the office. FOLLOW UP VISIT: Keep your scheduled follow-up appointment. Any questions, please call the office at . Current Hospital Diet Patient's current hospital diet: Diabetes Type 1 Diet Discharge Diet Recommended Diet: Diabetes Type 2 Diet Procedures Procedures Performed: C3-C6 Posterior Laminectomy and Fusion with instrumentation Pending Studies Studies pending at discharge: no Laboratory Results Hemoglobin A1c Test 09/16/16 05:40 Range/Units Estimated Average Glucose 154 mg/dl Hemoglobin A1c 7.0 H 4.5-5.6 % Medical Emergencies . Who to Call and When: Medical Emergencies: If at any time you feel your situation is an emergency, please call 911 immediately. . Non-Emergent Contact Non-Emergency issues call your: Surgeon . "Provider Documentation" section prepared by Rush Campos. . VTE Core Measure Inpt VTE Proph given/why not?: SCD's [place] Drug Monitoring Program Search Results: patient reviewed within database, no issues identified
--- NOTE | 2016-09-17 14:15 | Discharge Summary ---
Orthopedic Discharge Summary Admission Date/Reason Sep 15, 2016 at 08:43 Spinal Stenosis. Discharge Date/Disposition Sep 17, 2016 Home Diagnosis Principal Diagnosis: same Procedure(s) Performed C3-6 laminectomy/PSF Medication Reconciliation New Medications: Tramadol HCl (Tramadol HCl) 50 Mg Tab 50 MG PO Q4H PRN for Pain, #90 TAB Continued Medications: Albuterol Hfa (Ventolin Hfa) 200 Puffs/30951 Mcg Aers 2 PUFFS INH Q4H PRN for SOB/Wheezing, #1 INHALER Cholecalciferol (Vitamin D3) 1,000 Unit Tab 1000 UNITS PO QAM for 90 Days, TAB 3 Refills Citalopram (Citalopram Hydrobromide) 40 Mg Tab 1 TAB PO QAM for 90 Days, #90 TAB 3 Refills Fluticasone Propionate (Nasal) (Flonase Allergy Relief) 50 Mcg/Act Spr 1 SPRAY DANIEL BID PRN for Nasal Congestion Gabapentin (Neurontin) 100 Mg Cap 100 MG PO TID, CAP Hydroxyzine HCl (Hydroxyzine HCl) 10 Mg Tab 10 MG PO Q8 PRN for itching or anxiety Ibuprofen (Motrin) 800 Mg Tab 800 MG PO Q8H PRN for Pain, TAB Losartan Potassium (Cozaar) 50 Mg Tab 50 MG PO QAM, TAB Metformin Hcl (Glucophage Ext Rel) 1,000 Mg Tab 1000 MG PO BID, TAB [Humalog] () SC PUMP Admission Physical Exam As per Admitting History & Physical. Hospital Course She was admitted for elective cervical surgery, tolerated procedure well, was transferred to floor, remained stable, pain was controlled and she ambulated independently. discharged to home in stable condition Discharge Instructions Please refer to the electronic Patient Visit Report (Discharge Instructions) for additional information.
[2016-09-17] MEDS: TRAMADOL HCL 50 MG TAB PO PRN (14:47)
== END 2016-09-17 15:55 | disposition home or self-care (01) | DRG 472 ==
LOC: C.ACU 07:11 → C.3E 08:43 → ENRESERV 13:33
PROVIDERS: ADMIT Orthopaedic Surgery Orthopaedic Surgery of the Spine; ATTEND Orthopaedic Surgery Orthopaedic Surgery of the Spine
PROC: 3E0U0GB Introduction of Recombinant Bone Morphogenetic Protein into Joints, Open Approach (ICD-10-PCS; principal; 2016-09-15 09:30)
PROC: 0RG2071 Fusion of 2 or more Cervical Vertebral Joints with Autologous Tissue Substitute, Posterior Approach, Posterior Column, Open Approach (ICD-10-PCS; principal; 2016-09-15 09:30)
DX: M48.02 Spinal stenosis, cervical region (principal); G95.20 Unspecified cord compression; M54.12 Radiculopathy, cervical region; R00.0 Tachycardia, unspecified; I10 Essential (primary) hypertension; J45.909 Unspecified asthma, uncomplicated; E11.42 Type 2 diabetes mellitus with diabetic polyneuropathy; E78.00 Pure hypercholesterolemia, unspecified; E78.5 Hyperlipidemia, unspecified; M19.90 Unspecified osteoarthritis, unspecified site; H40.9 Unspecified glaucoma; F17.210 Nicotine dependence, cigarettes, uncomplicated; F32.9 Major depressive disorder, single episode, unspecified; F41.9 Anxiety disorder, unspecified; E66.9 Obesity, unspecified; Z68.30 Body mass index [BMI] 30.0-30.9, adult; Z96.41 Presence of insulin pump (external) (internal); Z79.1 Long term (current) use of non-steroidal anti-inflammatories (NSAID); Z79.4 Long term (current) use of insulin; Z79.84 Long term (current) use of oral hypoglycemic drugs; Z79.899 Other long term (current) drug therapy